=== PATIENT | male | born 1990 | race Caucasian/White ===

== ENCOUNTER 2019-11-20 18:48 | Observation (INO) ==
[2019-11-20] MEDS ORDERED: 0.9 % Sodium Chloride 1,000 ML ONE (18:58)
[2019-11-20] MEDS ORDERED: *HR* Adenosine 6 MG/2 ML SYRINGE IVP ONE ×2 (18:59→19:10)
[2019-11-20] MEDS ORDERED: *HR* Adenosine 6 MG/2 ML VIAL IVP ONE ×4 (19:05→19:13)
[2019-11-20] MEDS ORDERED: 0.9 % Sodium Chloride 1,000 ML IVC ONE (19:16)
[2019-11-20 19:24] LABS: Basophils # 0.1 K/mcL (0.0-0.2); Basophils % 0.7 %; Eosinophils # 0.4 K/mcL (0.0-0.6); Eosinophils % 3.8 %; Hematocrit 47.1 % (37.5-50.1); Immature Granulocytes % 0.3 % (0-4); Lymphocytes # 1.5 K/mcL (0.6-4.6); Lymphocytes % 13.8 %; Mean Corpuscular Volume 88.4 fL (83.0-100.0); Mean Platelet Volume 9.8 fL (9.4-12.4); Monocytes # 1.1 K/mcL (0.0-1.3); Monocytes % 9.8 %; Neutrophils # 7.9 K/mcL (1.6-8.9); Platelet Count 282 K/mcL (140-400); Red Blood Count 5.33 M/mcL (4.19-5.50); Red Cell Distribution Width 13.2 % (11.5-14.5); Segmented Neutrophils % 71.6 %
[2019-11-20 19:35] LABS: Prothrombin Time 11.2 Seconds (9.4-12.1)
[2019-11-20 19:50] LABS: BUN/Creatinine Ratio 16 (6-26); Blood Urea Nitrogen 17 mg/dL (6-20); Calcium 9.4 mg/dL (8.6-10.3); Carbon Dioxide 24 mEq/L (23-29); Chloride 108 mEq/L (98-107); Glucose 104 mg/dL (70-105); Magnesium 1.9 mg/dL (1.6-2.6); Osmolality,Calculated 294 (280-300); Sodium 141 mEq/L (136-145); eGFR For African Americans > 60 (> 60); eGFR For Non-African Americans > 60 (> 60)
[2019-11-20 19:51] LABS: Troponin I < 0.03 ng/mL (< 0.04)
[2019-11-20] MEDS: DilTIAZem 50 MG/50 ML IV.SOLN IVC SCH (19:58)
[2019-11-20 20:05] LABS: Thyroid Stimulating Hormone 1.121 mcIU/mL (0.340-5.600)
[2019-11-20] MEDS ORDERED: Naloxone 0.4 MG/ML INJ IVP PRN (23:13)
[2019-11-20] MEDS ORDERED: *HR* Promethazine 25 MG/ML VIAL IVP PRN (23:13)
[2019-11-20] MEDS ORDERED: Acetaminophen 325 MG TABLET PO PRN (23:13)
[2019-11-20] MEDS ORDERED: Perflutren Lipid Microsphere 1.3 ML in 0.9 % Sodium Chloride 8.7 ML IVP ONE (23:14)
[2019-11-21] MEDS ORDERED: *HR* Heparin 5,000 UNIT/ML VIAL IVP PRN ×2 (00:12)
[2019-11-21] MEDS ORDERED: *HR* Heparin 5,000 UNIT/ML VIAL IVP ONE (00:12)
[2019-11-21] MEDS ORDERED: Aspirin Enteric Coated 81 MG Tablet PO SCH (00:15)
[2019-11-21] MEDS ORDERED: Heparin 25,000 UNIT/250 ML D5W 25,000 UNIT/250 ML IV.SOLN IVC SCH (00:15)
[2019-11-21 00:52] LABS: Basophils # 0.1 K/mcL (0.0-0.2); Basophils % 0.6 %; Eosinophils # 0.5 K/mcL (0.0-0.6); Eosinophils % 4.9 %; Hematocrit 45.7 % (37.5-50.1); Hemoglobin 15.4 g/dL (12.9-16.9); Immature Granulocytes % 0.3 % (0-4); Lymphocytes # 2.2 K/mcL (0.6-4.6); Lymphocytes % 24.1 %; Mean Corpuscular HGB Conc 33.7 g/dL (31.6-35.5); Mean Corpuscular Hemoglobin 29.8 pg (28.0-33.3); Mean Corpuscular Volume 88.4 fL (83.0-100.0); Mean Platelet Volume 9.6 fL (9.4-12.4); Monocytes % 10.8 %; Neutrophils # 5.5 K/mcL (1.6-8.9); Platelet Count 253 K/mcL (140-400); Red Blood Count 5.17 M/mcL (4.19-5.50); Red Cell Distribution Width 13.4 % (11.5-14.5); Segmented Neutrophils % 59.3 %; White Blood Count 9.2 K/mcL (4.3-11.1)
[2019-11-21 00:56] LABS: Heparin anti-factor XA UFH < 0.04 IU/mL (0.30-0.70)
[2019-11-21 01:06] LABS: Alanine Aminotransferase 28 Units/L (7-52); Albumin/Globulin Ratio 1.5 (1.1-2.2); Alkaline Phosphatase 69 Units/L (34-104); Aspartate Amino Transferase 18 Units/L (13-39); BUN/Creatinine Ratio 18 (6-26); Bilirubin,Total 0.2 mg/dL (0.3-1.0); Blood Urea Nitrogen 16 mg/dL (6-20); Calcium 8.6 mg/dL (8.6-10.3); Carbon Dioxide 24 mEq/L (23-29); Chloride 110 mEq/L (98-107); Cholesterol 209 mg/dL (< 200); Globulin 2.6 g/dL (2.4-3.5); Glucose 127 mg/dL (70-105); HDL Cholesterol 30 mg/dL (40-59); LDL Cholesterol,Calculated 121 mg/dL (< 100); Magnesium 1.8 mg/dL (1.6-2.6); Osmolality,Calculated 295 (280-300); Phosphorous 3.1 mg/dL (2.7-4.5); Potassium 3.7 mEq/L (3.5-5.1); Sodium 141 mEq/L (136-145); Total Protein 6.6 g/dL (6.4-8.9); Triglycerides 288 mg/dL (< 150); eGFR For African Americans > 60 (> 60); eGFR For Non-African Americans > 60 (> 60)
[2019-11-21] MEDS: Heparin 25,000 UNIT/250 ML D5W 25,000 UNIT/250 ML IV.SOLN IVC SCH ×2 (01:18→16:00)
[2019-11-21] MEDS: DilTIAZem 50 MG/50 ML IV.SOLN IVC SCH ×4 (01:21→20:58)
[2019-11-21 02:24] LABS: Amphetamine Screen,Urine Negative ng/mL (Cutoff=1000); Barbiturate Screen,Urine Negative ng/mL (Cutoff=200); Benzodiazepines Screen,Urine Negative ng/mL (Cutoff=200); Cannabinoid Screen,Urine Negative ng/mL (Cutoff = 50); Cocaine Screen,Urine Negative ng/mL (Cutoff= 300); Opiate Screen,Urine Negative ng/mL (Cutoff=300); Phencyclidine Screen,Urine Negative ng/mL (Cutoff=25)
[2019-11-21 04:53] LABS: Prothrombin Time 11.7 Seconds (9.4-12.1)
[2019-11-21] MEDS ORDERED: Magnesium Sulfate 1 GM/102 ML PIGGYBACK IVPB ONE (06:41)
[2019-11-21 07:34] LABS: Estimated Average Glucose 126 mg/dl
[2019-11-22] MEDS: DilTIAZem 50 MG/50 ML IV.SOLN IVC SCH (03:11)
[2019-11-22 04:20] LABS: Basophils # 0.1 K/mcL (0.0-0.2); Basophils % 0.7 %; Eosinophils # 0.5 K/mcL (0.0-0.6); Eosinophils % 5.8 %; Hematocrit 46.5 % (37.5-50.1); Hemoglobin 15.7 g/dL (12.9-16.9); Immature Granulocytes % 0.3 % (0-4); Lymphocytes # 2.4 K/mcL (0.6-4.6); Lymphocytes % 27.7 %; Mean Corpuscular HGB Conc 33.8 g/dL (31.6-35.5); Mean Corpuscular Volume 88.9 fL (83.0-100.0); Mean Platelet Volume 9.7 fL (9.4-12.4); Monocytes # 0.8 K/mcL (0.0-1.3); Monocytes % 9.5 %; Neutrophils # 4.8 K/mcL (1.6-8.9); Platelet Count 245 K/mcL (140-400); Red Blood Count 5.23 M/mcL (4.19-5.50); Red Cell Distribution Width 13.2 % (11.5-14.5); White Blood Count 8.6 K/mcL (4.3-11.1)
[2019-11-22 04:39] LABS: BUN/Creatinine Ratio 14 (6-26); Blood Urea Nitrogen 13 mg/dL (6-20); Calcium 8.9 mg/dL (8.6-10.3); Carbon Dioxide 25 mEq/L (23-29); Chloride 106 mEq/L (98-107); Glucose 93 mg/dL (70-105); Magnesium 2.2 mg/dL (1.6-2.6); Osmolality,Calculated 288 (280-300); Phosphorous 3.4 mg/dL (2.7-4.5); Potassium 3.8 mEq/L (3.5-5.1); Sodium 139 mEq/L (136-145); eGFR For African Americans > 60 (> 60); eGFR For Non-African Americans > 60 (> 60)
[2019-11-22] MEDS: Heparin 25,000 UNIT/250 ML D5W 25,000 UNIT/250 ML IV.SOLN IVC SCH (06:16)
[2019-11-22] MEDS ORDERED: DilTIAZem CD (24hr) 120 MG CAP.ER.24H PO SCH (10:30)
[2019-11-22] MEDS ORDERED: Perflutren Lipid Microsphere 1.3 ML in 0.9 % Sodium Chloride 8.7 ML IVP ONE (11:02)
[2019-11-22 11:53] VITALS: BP 119/79
== END 2019-11-22 17:10 | disposition home or self-care (01) | DRG 201 ==
LOC: EMEROOARM 18:48 → 2ANU 18:48
PROVIDERS: ADMIT Student in an Organized Health Care Education/Training Program; ATTEND Student in an Organized Health Care Education/Training Program